=== PATIENT | male | born 1935 | race Caucasian/White ===

== ENCOUNTER 2020-06-28 14:42 | Outpatient (REF) | payer SELFPAY | END 2020-06-28 14:43 | disposition home or self-care (01) | LOC: HO.HAP 14:42 | PROVIDERS: Visit Provider Internal Medicine | DX: Z46.1 Encounter for fitting and adjustment of hearing aid (principal) | CPT/HCPCS: 92700 ==

== ENCOUNTER 2021-05-30 14:12 | Outpatient (REF) | payer SELFPAY ==
--- NOTE | 2021-05-30 15:04 | MHC.AU.HFU ---
Hearing Instrument Follow-Up- Binaural Date of Visit: 05/30/21 Right Ear: Company Miner Blasting: Oticon Model: Opn 3 Power Plus Serial Number: [id number] Repair Warranty: 09/15/21 Battery Size: 13 Tubing: Size 2 slim tube Type of Mold: custom slim tube molds (Variotherm) with canal lock Dispensed By: [facility] Date of Fittin08/26/2018 Left Ear: Company Miner Blasting: Oticon Model: Opn 3 Power Plus Serial Number: [id number] Repair Warranty: 09/15/21 Loss and Damage Warranty: Battery Size: 13 Tubing: size 2 slim tube Type of Mold: custom slim tube molds (Variotherm) with canal lock Dispensed By: [facility] Date of Fittin08/26/2018 Follow-Up Summary: The slim tube on the patient's right hearing aid had snapped. The left slim tube also appeared close to breaking off. Both molds cleaned and re-tubed. Shell, microphones, and battery compartments cleaned of excess debris. Hearing aids are amplifying clearly after maintenance. Recommendations: Patient's warranty is expiring 09/15/2021. Advised him to call us after Thanksgiving to set up a time to send out his hearing aids before the warranty expires. We can arrange for a pair of loaners while they go out. Diagnosis Code(s): Primary Diagnosis: H90.3 Bilateral Sensorineural Hearing Loss Signature: Provider: Michell Nieves, [facility]
== END 2021-05-30 14:13 | disposition home or self-care (01) ==
LOC: HO.HAP 14:12
PROVIDERS: PCP Internal Medicine; Visit Provider Internal Medicine
DX: Z13.89 Encounter for screening for other disorder (principal)

== ENCOUNTER 2021-09-01 13:51 | Outpatient (REF) | payer SELFPAY | END 2021-09-01 13:52 | disposition home or self-care (01) | LOC: HO.HAP 13:51 | PROVIDERS: Visit Provider Internal Medicine | DX: Z13.89 Encounter for screening for other disorder (principal) ==

== ENCOUNTER 2021-09-25 08:21 | Outpatient (REF) | payer SELFPAY | END 2021-09-25 08:22 | disposition home or self-care (01) | LOC: HO.HAP 08:21 | PROVIDERS: Visit Provider Internal Medicine | DX: Z13.89 Encounter for screening for other disorder (principal) ==

== ENCOUNTER 2022-07-15 13:47 | Outpatient (REF) | payer SELFPAY | END 2022-07-15 13:48 | disposition home or self-care (01) | LOC: HO.HAP 13:47 | PROVIDERS: Visit Provider Internal Medicine | DX: Z13.89 Encounter for screening for other disorder (principal) ==

== ENCOUNTER 2022-07-16 10:27 | Outpatient (REF) | payer SELFPAY | END 2022-07-16 10:28 | disposition home or self-care (01) | LOC: HO.HAP 10:27 | PROVIDERS: Visit Provider Internal Medicine | DX: Z46.1 Encounter for fitting and adjustment of hearing aid (principal); H90.3 Sensorineural hearing loss, bilateral | CPT/HCPCS: 92593 ==

== ENCOUNTER 2022-08-17 15:07 | Outpatient (REF) | payer SELFPAY | END 2022-08-17 15:08 | disposition home or self-care (01) | LOC: HO.HAP 15:07 | PROVIDERS: Visit Provider Internal Medicine | DX: Z13.89 Encounter for screening for other disorder (principal) ==

== ENCOUNTER 2023-05-25 13:16 | Outpatient (REF) | payer SELFPAY ==
--- NOTE | 2023-05-25 13:52 | MHC.AU.HA3 ---
Hearing Instrument Follow-Up- Binaural Date of Visit: 05/25/23 Right Ear: Samm, Model, Color, Serial Number: Oticon OPN 3 Power Plus SN: [id number] (Previous SN: [id number]) Ruffler Repair Warranty: 09/15/2021 Ruffler Loss and Damage Warranty: 09/15/2021 Battery Size: 13 Shop Supervisor/Slim Tube: Size 2 slim tube Earmold/Dome/CShell/SlimTip:custom Variotherm slim tube molds with canal lock Dispensed By: [facility] Date of Fittin08/26/2018 Left Ear: Samm, Model, Color, Serial Number: Oticon OPN 3 Power Plus SN: [id number] (Previous SN: [id number]) Ruffler Repair Warranty: 09/15/2021 Ruffler Loss and Damage Warranty: 09/15/2021 Battery Size: 13 Shop Supervisor/Slim Tube: Size 2 slim tube Earmold/Dome/CShell/SlimTip: custom Variotherm slim tube molds with canal lock Dispensed By: [facility] Date of Fittin08/26/2018 Follow-Up Summary: Satnam reported that his slim tubes are not staying connected to his hearing aids. The threads on the slim tube connectors appeared to be worn. Cleaned both hearing aids and ear molds. Replaced the slim tube connectors on the hearing aids as well as both slim tubes. Vacuumed microphones and ran through dehumidifier. A listening check demonstrated that the hearing aids are in good working order. Satnam also reported the right hearing aid was previously making beeping noises; however, he has not noticed it in several days. Discussed the age of the hearing aids. Satnam reported that he will reach out to [facility] to determine his eligibility for obtaining new hearing aids. Recommendations: Hearing instrument maintenance in 6 months, or sooner if needed. Please contact our clinic with any questions or concerns. Diagnosis Code(s): Primary Diagnosis: H90.3 Bilateral Sensorineural Hearing Loss Signature: Provider: John Paul Joy, [facility]
== END 2023-05-25 13:17 | disposition home or self-care (01) ==
LOC: HO.HAP 13:16
PROVIDERS: Visit Provider Internal Medicine
DX: Z46.1 Encounter for fitting and adjustment of hearing aid (principal); H90.3 Sensorineural hearing loss, bilateral
CPT/HCPCS: 92593

== ENCOUNTER 2024-03-14 16:50 | Outpatient (REF) | payer SELFPAY ==
--- NOTE | 2024-03-15 09:49 | MHC.AU.HA3 ---
Hearing Instrument Follow-Up- Binaural Date of Visit: 03/14/24 Right Ear: Samm, Model, Color, Serial Number: Oticon OPN 3 Power Plus SN: [id number] (Previous SN: [id number]) Rfid Specialist Repair Warranty: 09/15/2021 Rfid Specialist Loss and Damage Warranty: 09/15/2021 [facility] Service Plan: Battery Size: 13 Project Control Analyst/Slim Tube: Size 2 slim tube Earmold/Dome/CShell/SlimTip:custom Variotherm slim tube molds with canal lock Type of Wax Guard: n/a Dispensed By: [facility] Date of Fittin08/26/2018 Left Ear: Make, Model, Color, Serial Number: Oticon OPN 3 Power Plus SN: [id number] (Previous SN: [id number]) Rfid Specialist Repair Warranty: 09/15/2021 Rfid Specialist Loss and Damage Warranty: 09/15/2021 [facility] Service Plan: Battery Size: 13 Project Control Analyst/Slim Tube: Size 2 slim tube Earmold/Dome/CShell/SlimTip: custom Variotherm slim tube molds with canal lock Type of Wax Guard: n/a Dispensed By: [facility] Date of Fittin08/26/2018 Follow-Up Summary: Satnam is seen for hearing eval and hearing aid consult referred by [facility]. He reports that his hearing aids are getting old, not working as well as he'd like, the right one doesn't seem to be working at all. See audiogram. Cleaned aids and earmolds, replaced slim tubes, listening check positive. Reprogramed to new audiogram and further increased gain at patient request. New amplification is recommended but Satnam should have ENT consult due to new mixed asymmetry and then return for hearing aid consult. Recommendations: Recommendations : Return for hearing aid consult pending ENT consult and recommendations. Diagnosis Code(s): Primary Diagnosis: H90.A22 SNHL, Unilateral, Left Ear, W/Restricted Contralateral Hearing Secondary Diagnosis: H90.A31 Mixed HL, Unilateral Right Ear, W/Restricted Contralateral Signature: Provider: John Paul Hernandez, [facility]
== END 2024-03-14 16:51 | disposition home or self-care (01) ==
LOC: HO.HAP 16:50
PROVIDERS: Visit Provider Internal Medicine
DX: Z46.1 Encounter for fitting and adjustment of hearing aid (principal); H90.A22 Sensorineural hearing loss, unilateral, left ear, with restricted hearing on the contralateral side; H90.A31 Mixed conductive and sensorineural hearing loss, unilateral, right ear with restricted hearing on the contralateral side
CPT/HCPCS: 92593

== ENCOUNTER 2024-11-03 12:48 | Outpatient (REF) | payer SELFPAY ==
--- OUTSIDE RECORDS SUMMARY | 2024-11-03 13:25 | XMS_ITS | Data Portability ---
Author Organization [place] - [facility], Allergy Address [address] [place] [phone] Care Team Providers Care Pararescue Craftsman Name Role Phone AMY STERLING Primary Care Provider MAEGAN SOLER Referring Provider Assessment No assessment recorded. Plan of Treatment Reminders Order Date Submit Date Provider Last Modified By Organization Details Last Modified Time Details Appointments Hearing Test 2024 01:00P M Hearing Test Not available Not available Not available Establish ed 30 2024 01:30P M KRISTOPHER Roman MD Not available Not available Not available Lab None recorded. Referral None recorded. Procedures None recorded. Surgeries None recorded. Imaging None recorded. Medication Orders None recorded. Patient TargetsNo targets recorded. Patient InstructionsNo instructions recorded. Reason for Referral None Reported. Results Created Date Observation Date Name Description Value Unit Range Abnormal Flag Note LastModifiedBy Organization Detail LastModifiedTime 09/06/20 24 audio gram No observ ation record ed. [facility] Not Available 2023 11:35:04 09/08/20 24 05/26/2018 audio gram No observ ation record ed. [facility] Not Available 2023 12:42:11 Result Notes None recorded. 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 0877866754052 5 Active 2023 KRISTOPHER Roman MD [address] [place] [address], [phone] [facility] [place] - [facility] [place] 13:27:00 Impacted cerumen in right ear 2485847596857 103 Active 2023 KRISTOPHER Roman MD [address] [place], [place] [address], [place], [phone], [facility] - [facility] [place] 4 13:27:08 Sensorineur al hearing loss of bilateral ears 355978950 Active 2023 ALLY JAYLENE, AUD [address] [address], [place], [phone], [facility] - [facility] 4 14:01:29 Problem Notes None recorded. Procedures Surgical History Date Name Laterality Status Provider Name and Address Organization Details Recorded Time Comp Audio with Tymps (28416 & 69271) completed ALLY MARIEE, AUD [address] [address], [place], [address], [facility] 09/04/2024 14:00:28 Cerumen removal with microscope right completed KRISTOPHER LAZO MD [address], [phone], [facility] 09/04/2024 13:27:45 Imaging Results Imaging Date Name Status LastModified by Organiz ation Details LastModified Time 09/06/2024 audiogram completed [facility] Information no t available 09/06/2024 11:35:04 05/26/2018 audiogram completed [facility] Information no t available 09/08/2024 12:42:11 Procedure Notes None recorded. Medical Equipment None Reported. Allergies No known drug allergies Medications Name Sig Start Date Stop Date Status Note LastModified by Organization Details LastModified Time latanoprost 0.005 % eye drops LOCATION: BOTH EYES. INSTILL ONE DROP IN BOTH EYES AT BEDTIME active Not Available Not Available No t Available cyanocobalamin (vit B-12) 100 mcg tablet TAKE 1 TABLET BY MOUTH EVERY DAY active Not Available Not Available No t Available amlodipine 5 mg tablet TAKE 1 TABLET BY MOUTH EVERY DAY active Not Available Not Available No t Available tamsulosin 0.4 mg capsule TAKE 2 CAPSULE BY MOUTH DAILY,INS TR:DOSE INCREASE active Not Available Not Available No t Available amlodipine 10 mg tablet TAKE 1 TABLET BY MOUTH EVERY DAY active Not Available Not Available No t Available montelukast 10 mg tablet TAKE 1 TABLET BY MOUTH EVERY DAY active Not Available Not Available No t Available fluticasone propionate 50 mcg/actuation nasal spray,suspensi on USE 1 SPRAY IN EACH NOSTRIL TWICE A DAY active Not Available Not Available No t Available ProAir RespiClick 90 mcg/actuation breath activated INHALE 2 PUFFS INTO LUNGS EVERY 4 HOURS NEEDED active Not Available Not Available No t Available Vitals Date Recorded Body height Body mass index (BMI) Body weight Provider Name and Address Organization Details Last Updated DateTime 09/04/2024 175.26 cm 29.5 kg/m2 45324.47 g George Youngblood MD - [facility] 09/04/2024 13:12:12 Social History None recorded. Functional Status None recorded. Mental Status None recorded. Family History Nothing Reported. Medical History No medical history recorded. Past Encounters Encounter ID Performer Location Encounter Start Date Encounter Closed Date Diagnosis/Indication Diagnosis SNOMED-CT Code Diagnosis ICD10 Code Diagnosis Note [id number] KRISTOPHER LAZO MD [facility] [address] [address] 09/04/2024 12:53:59 09/04/2024 14:18:05 Mixed conductive and sensorineural hearing loss of right ear [id number] 9105 H90.A31 debrided cerumen AD near TM. Repeated audio which showed Impacted c erumen in right ear 3468772218 434438 H61.21 debrided Sensorineu ral hearing loss of bilateral ears 279604081 H90.3 Audiologic al evaluation results: [facility]04[facility]:{{Norm al Normal through 2 kHz Mild* Moderate M oderately- severe Sev ere Profou nd}} {{hearing hearing. s loping to a mild slopi ng to a moderate s loping to moderately severe slo ping to severe slo ping to profound* flat high frequency low frequency mid frequency cookie bite emerson curve}} {{with sen sorineural hearing loss with* cond uctive hearing loss with mixed hearing loss with}} {{excellen t good dipak r* poor no measurable }} word recognitio n.Left ear:{{Norm al Normal through 2 kHz Mild* Moderate M oderately- severe Sev ere Profou nd}} {{hearing hearing. s loping to a mild slopi ng to a moderate s loping to moderately severe slo ping to severe* sl oping to profound f lat high frequency low frequency mid frequency cookie bite emerson curve}} {{with sen sorineural hearing loss with* cond uctive hearing loss with mixed hearing loss with}} {{excellen t good dipak r* poor no measurable }} word recognitio n. Tympanomet ry:Right Ear:{{Type A* Type As Type Ad Type C Type C, shallow & rounded Ty pe B Type B with large volume Cou ld not maintain a hermetic seal}}Left Ear:{{Type A* Type As Type Ad Type C Type C, shallow & rounded Ty pe B Type B with large volume Cou ld not maintain a hermetic seal}} No conductive component. Has some asymmetry. Discussed an MRI to evaluate for retrocochl ear pathology but he deferred in favor of yearly surveillan ce audiograms . Gave medical clearance for hearing aids. Health Concerns Section Related Observation LastModified by Organization Detai ls LastModified Time None Recorded Concern Status LastModified by Organization Details LastModified Time None Recorded Advance Directives Directive None Recorded Payers Encounter Date Sequence Insurance Name Policy Number Policy Collazo Covered Member ID Collazo Member ID Guarantor Name 09/04/2024 1 [facility] [id number] 1 Satnam Cleveland [id number] Satnam Cleveland Notes Date Note Type Note Provider Name and Address Organization Details Recorded Time 09/04/2024 text/html He has a history of hearing loss. Made an apt because his hearing aids were not working well. Had an audio 03/20 which showed a new mixed loss AD. He feels his hearing aids are not working well. Denies tinnitus. KRISTOPHER LAZO MD [address] [place] [address], [phone], [facility] - [facility] 09/04/2024 14:13:06
--- OUTSIDE RECORDS SUMMARY | 2024-11-03 13:25 | XMS_ITS | Clinical Summary ---
Author Organization [facility], Address [address] [place] [phone] Phone Care Team Providers Care Civil Cad Designer Name Role Phone Russ Waldrop MD Primary Care Provider [phone] Allergies Active Allergy Reactions Criticality Noted Date Comments Sulfamethoxazole-Trimethoprim 2021 Tamsulosin 10/26/2021 fainting Metoprolol 10/26/2021 Ceftriaxone 10/26/2021 Vancomycin 10/26/2021 Medications Symbicort 80-4.5 MCG/ACT inhaler 09/15/2021 Act devi fluticasone (FLONASE) 50 MCG/ACT nasal spray 02/27/2015 Active montelukast (SINGULAIR) 10 MG tablet 07/29/2021 Active Multiple Vitamins-Mineral s (multivitamin with minerals) tablet Take 1 tablet by mouth 1 (one) time each day Active amLODIPine (NORVASC) 5 MG tablet Take 5 mg by mouth 1 (one) time each day Active aspirin (ST ZEESHAN) 81 MG EC tablet Take 81 mg by mouth 1 (one) time each day Active Active Problems Problem Noted Date Diagnosed Date Hypertension 10/26/2021 Chronic kidney disease, stage 2 (mild) 2 Immunizations Name Administration Dates Next Due Influenza Split High Dose Preservative Free IM 0 05/31/2015 Pneumococcal Conjugate 13-Valent 05/31/2015 Family History Medical History Relation Comments Coronary artery disease Father Diabetes Father Cancer Sibling Relation Status Comments Father Sibling Alive Social History Tobacco Use Types Packs/Day Years Used Date Smoking Tobacco: Former Smokeless Tobacco: Never Sex and Gender Information Value Date Recorded Sex Assigned at Not on file Legal Sex Male 11:42 AM EST Gender Identity Not on file Sexual Orientation Not on file Last Filed Vital Signs Vital Sign Reading Time Taken Comments Blood Pressure 132/62 01/22/2022 11:32 AM EDT Pulse 72 01/22/2022 11:32 AM EDT Temperature 35.6 ??C (96.1 ??F) 01/22/2022 11:32 AM E DT Respiratory Rate - - Oxygen Saturation - - Inhaled Oxygen Concentration - - Weight - - Height - - Body Mass Index - - Plan of Treatment Health Maintenance Due Date Last Done Comments Pneumococcal Vaccine: 65+ Years (2 of 2 - PPSV23 or PCV20) 07/26/2015 05/31/2015, 05/31/2015 Influenza Vaccine (#1) 2024 5, 05/31/2015 Hepatitis B Vaccine Aged Out No longe r eligible based on patient's age to complete this topic Insurance Care Teams Civil Cad Designer Relationship Specialty Start Date End Date Russ Waldrop MD [address] [place] [phone] PCP - General Family Medicine 09/15/21
== END 2024-11-03 12:49 | disposition home or self-care (01) ==
LOC: HO.HAP 12:48
PROVIDERS: Visit Provider Internal Medicine
DX: Z13.89 Encounter for screening for other disorder (principal)

== ENCOUNTER 2025-04-30 13:55 | Outpatient (REF) | payer SELFPAY ==
--- OUTSIDE RECORDS SUMMARY | 2025-04-30 14:07 | XMS_ITS | Clinical Summary ---
Author Organization [facility], Address [address] [place] [phone] Phone Care Team Providers Care Delicatessen Department Manager Name Role Phone Russ Waldrop MD Primary Care Provider [phone] Allergies Active Allergy Reactions Criticality Noted Date [...] kidney disease, stage 2 (mild) 2 Immunizations Immunization Administration Dates Next Due Influenza Split High [...] 72 01/22/2022 11:32 AM EDT Temperature 35.6 C (96.1 F) 01/22/2022 11:32 AM EDT Respiratory Rate - - Oxygen Saturation - - Inhaled Oxygen Concentration - - Weight - - Height - - Body Mass Index - - Plan of Treatment Health Maintenance Due Date Last Done Comments Influenza Vaccine (#1) 2025 9, 05/31/2015, 05/31/2015, Additional history exists Pneumococcal Vaccine: 50+ Years Completed 06/10/2016, 05/31/2015, 05/31/2015, Additional history exists Hepatitis B Vaccine Aged Out No longe r eligible based on patient's age to complete this topic Insurance Care Teams Delicatessen Department Manager Relationship Specialty Start Date End Date Russ Waldrop MD [address] [place] [phone] PCP - General Family Medicine 09/15/21
--- NOTE | 2025-04-30 14:22 | MHC.AU.HA3 ---
Hearing Instrument Follow-Up- Binaural Date of Visit: 04/30/25 Right Ear: Make, Model, Color, Serial Number: Oticon Real 2 miniRITE Rjayro [id number] Disposition Clerk Repair Warranty: 11/08/2027 Disposition Clerk Loss and Damage Warranty: 11/08/2027 [facility] Service Plan: 10/13/25 Battery Size: Rechargeable Process Plant Operator/Slim Tube: Size 3, 105g Earmold/Dome/CShell/SlimTip:power mold with canal lock [id number] Warranty 11/08/2027 Type of Wax Guard: Oticon Prowax Dispensed By: [facility] Date of Fittin08/26/2018 Left Ear: Make, Model, Color, Serial Number: Oticon Real 2 miniRITE Rjayro [id number] Disposition Clerk Repair Warranty: 11/08/2027 Disposition Clerk Loss and Damage Warranty: 11/08/2027 [facility] Service Plan: 10/13/25 Battery Size: Rechargeable Process Plant Operator/Slim Tube: Size 3 , 105g Earmold/Dome/CShell/SlimTip: power mold with canal lock [id number] Warranty 11/08/2027 Type of Wax Guard: Oticon Prowax Dispensed By: [facility] Date of Fittin08/26/2018 Follow-Up Summary: Seen for six month PIERRE check as previously recommended. Satnam reports no problems with hearing aids at this time. Cleaned hearing aids and earmolds, replaced wax guards, brushed out microphones, ran through dehumidifier. Listening check positive. Discussed end of service plan 10/13/25, plans to come in for maintenance again before then. Recommendations: Recommendations: Hearing instrument follow-up or maintenance as needed. Diagnosis Code(s): Primary Diagnosis: H90.3 Bilateral Sensorineural Hearing Loss Signature: Provider: John Paul Hernandez, [facility]
== END 2025-04-30 13:56 | disposition home or self-care (01) ==
LOC: HO.HAP 13:55
PROVIDERS: PCP Family Medicine; Visit Provider Otolaryngology
DX: Z46.1 Encounter for fitting and adjustment of hearing aid (principal); H90.3 Sensorineural hearing loss, bilateral
CPT/HCPCS: V5267